=== PATIENT | female | born 1945 | race Caucasian/White ===

== ENCOUNTER → 2017-02-28 | Outpatient (CLI) | payer MEDICARE | END | disposition home or self-care (01) | LOC: CFH 13:17 | PROVIDERS: ATTEND Chiropractor | DX: M47.895 Other spondylosis, thoracolumbar region (principal) | CPT/HCPCS: 72100 ==

== ENCOUNTER 2019-04-22 10:18 | Observation (INO) | payer MEDICARE ==
[~2019-04-22] VITALS: Ht 165.1 cm; Wt 111.7 kg
[2019-04-24 12:38] VITALS: BP 115/70
== END 2019-04-24 14:30 | disposition home or self-care (01) ==
LOC: ED 11:19 → INTOOBSV 12:22 → EDIP 12:22 → 4NOR 13:42 → DCLOUNGE 04-24 14:20
PROVIDERS: ADMIT Family Medicine; ATTEND Family Medicine
DX: K80.20 Calculus of gallbladder without cholecystitis without obstruction (principal); E11.42 Type 2 diabetes mellitus with diabetic polyneuropathy; R82.71 Bacteriuria; R42 Dizziness and giddiness; R01.1 Cardiac murmur, unspecified; E03.9 Hypothyroidism, unspecified; I10 Essential (primary) hypertension; E66.01 Morbid (severe) obesity due to excess calories; Z87.891 Personal history of nicotine dependence; Z88.0 Allergy status to penicillin; Z91.040 Latex allergy status; Z90.710 Acquired absence of both cervix and uterus; Z88.2 Allergy status to sulfonamides; Z79.84 Long term (current) use of oral hypoglycemic drugs; Z68.41 Body mass index [BMI] 40.0-44.9, adult; Z79.1 Long term (current) use of non-steroidal anti-inflammatories (NSAID)
CPT/HCPCS: 36415; 47562; 74181; 76700; 80053; 81001; 82962; 83036; 83690; 85025; 87077; 87086; 87186; 88304; 93306; 96360; 96361; 96372; 99284; C1760; G0378; J0330; J0690; J1100; J1170; J1815; J2250; J2405; J2704; J2710; J3010; J7120

== ENCOUNTER → 2020-03-20 | Outpatient (CLI) | payer MEDICARE | END | disposition home or self-care (01) | LOC: CFH 14:16 | PROVIDERS: ATTEND Family Medicine | DX: K74.69 Other cirrhosis of liver (principal); R16.1 Splenomegaly, not elsewhere classified; R18.8 Other ascites | CPT/HCPCS: 76700 ==